=== PATIENT | female | born 1955 | race Caucasian/White ===

== ENCOUNTER 2016-12-04 21:37 | Emergency (ER) | payer BC ==
[~2016-12-04] VITALS: Ht 162.6 cm; Wt 64.2 kg
[~2016-12-04 21:37] MED LIST: AFRIN,GENASAL D15 ML BOTH NARES; ALEVE220 MG PO; ASPIR 8181 M1 PO; ASPIRIN EC325 MG PO; CITALOPRAM HBR20 MG PO; FLAXSEED OIL1000 M4 PO; LEVOTHYROXINE100 MCG PO; LEXAPRO20 MG PO; MUCINEX600 MG PO; NASONEX17 GM BOTH NARES; NICOTINE PATCH1 EAC2 TD; PREDNISONE10 MG PO; PREDNISONE20 MG PO; PROAIR HFA8.5 GM IH; PROBIOTIC1 EAC1 PO; PROVENTIL,2.5 MG/3 M IH; SPIRIVA1 INHALATI IH; SYMBICORT60 INHALA1 IH; SYNTHROID100 MCG PO; TUMS X-STR300 MG PO; TYLENOL EXTRA500 MG PO; VENTOLIN HFA18 GM IH; VISINE MAX REDN15 ML BOTH EYES; ZITHROMAX Z-PA250 MG PO; ZYRTEC10 M3 PO
[2016-12-05 01:01] VITALS: BP 132/87
== END 2016-12-05 01:02 | disposition home or self-care (01) ==
LOC: EME 21:37
DX: S86.912A Strain of unspecified muscle(s) and tendon(s) at lower leg level, left leg, initial encounter (principal); M79.1 Myalgia; J44.9 Chronic obstructive pulmonary disease, unspecified; F17.200 Nicotine dependence, unspecified, uncomplicated
CPT/HCPCS: 93971; 99281; 99284